=== PATIENT | female | born 2000 | race African-American/Black ===

== ENCOUNTER 2021-06-28 18:56 | Inpatient (IN) | payer OTHER ==
[~2021-06-28] VITALS: Ht 170.2 cm; Wt 119.7 kg
[2021-06-28 20:34] LABS: HEMOGLOBIN 9.4 gm/dl (12.3-15.3); RED BLOOD COUNT 4.08 M/UL (4.00-5.10); WHITE BLOOD COUNT 8.6 K/UL (4.5-11.0)
[2021-06-28 21:07] LABS: BUN/CREATININE RATIO 13 (0-10)
[2021-06-29] MEDS ORDERED: KEPPRA500 MG PO (01:36)
[2021-06-29] MEDS ORDERED: NORVASC5 MG PO (01:37)
[2021-06-29] MEDS ORDERED: PLAVIX75 MG PO (01:38)
[2021-06-29] MEDS ORDERED: ABILIFY MAINTE300 MG IM (01:40)
[2021-06-29] MEDS ORDERED: TRUVADA 200 MG1 EACH PO (01:41)
[2021-06-29] MEDS ORDERED: TIVICAY50 MG PO (01:41)
--- NOTE | 2021-06-29 20:46 | NUR ---
1940 PATIENT JERONIMO AWAN RANG OUT TO NURSES STATION, PATIENT DID NOT RESPOND WHEN ASKED IF SHE NEEDED ASSISTANCE. I WENT TO PATIENTS ROOM TOO CHECK ON PATIENT. THE BATHROOM DOOR WAS CLOSED AND LOCKED, UPON KNOCKING ON THE DOOR AND CALLING OUT TO THE PATIENT SHE STATED THAT SHE WAS GOING TO STRANGLE HERSELF. I ASKED HER TO PLEASE OPEN THE DOOR AND SHE DID NOT RESPOND. I RAN OUT TO THE NURSES STATION TO GRAB MY TRUCK KEYS AND A BUTTER KNIFE OFF A MEAL TRAY. MAYANK CAME FOR ASSISTANCE AND I IINSTRUCTED HER TO CALL SECURITY I CALLED THE LEAD DATABASE DEVELOPER. WE WERE UNABLE TO GET THE DOOR OPEN UNTIL SECURITY ARRIVED WITH KEYS. UPON THE DOOR BEING UNLOCKED THE PATIENT WAS FOUND SITTING ON THE TOLIET WITH THE CALL BALL WRAPPED AROUND HER NECK TIGHTLY 3 TIMES. I CALLED AN YARDAGE CONTROL CLERK AND NOTIFIED THE PHYSICIAN. SEANYIRICHARD WAS BRIEFLY UNRESPONSIVE BUT WAS ARROUSED AND ABLE TO WALK TO BED WITH ASSISTANCE. PATIENT STATED THAT SHE IS ANXIOUS FOR SURGERY TOMORROW AND WANTED TO GO HOME. AFTER TALKING WITHH THE PROVIDER THE PATIENT IS NOW ON SI WITH A 1:1 SITTER. PATIENT IS SCHEDULED CT OF HEAD AND NECK TO RULE OUT INJURIES FROM CORD. I WILL CONTINUE TO MONITOR PATIENT .
[2021-06-30 04:14] LABS: HEMOGLOBIN 9.7 gm/dl (12.3-15.3); RED BLOOD COUNT 4.24 M/UL (4.00-5.10)
[2021-06-30 04:40] LABS: BUN/CREATININE RATIO 12 (0-10)
--- NOTE | 2021-06-30 07:12 | NUR ---
1939 PATIENT VITALS SIGNS POST OCCURANCE 101/64, 98.0, 83 [phone] 99 PROVIDER WAS NOTIFIED AND ORDERED CT OF HEAD AND NECK
--- NOTE | 2021-06-30 09:23 | NUR ---
PATIENT ANXIOUS ABOUT SURGERY STATES SHE WANTS TO BE A DNR
--- NOTE | 2021-06-30 16:48 | NUR ---
PATIENT HAS FREQUENT EPISODES OF ANGER AND OURTRAGE VISITORS (2) WERE HERE WHEN PT WAS IN OR SENT TWO VISITORS TO 2ND FLOOR FOR UPDATES WHEN PT CAME BACK TO FLOOR NO VISITORS WERE PRESENT PT BECAME VERY UPSET AND I HAD TO ADMINISTER 1MG OF ATIVAN IVP SITTER AT BEDSIDE NO CURTAINS, CORDS, ANYTHING NEAR THE PT FOR HARM WCTM....
[2021-07-01 09:46] LABS: HEMOGLOBIN 10.5 gm/dl (12.3-15.3); RED BLOOD COUNT 4.57 M/UL (4.00-5.10)
[2021-07-01 09:47] LABS: WHITE BLOOD COUNT 13.4 K/UL (4.5-11.0)
[2021-07-01 10:12] LABS: BUN/CREATININE RATIO 17 (0-10)
[2021-07-01 22:07] LABS: HEMOGLOBIN 10.4 gm/dl (12.3-15.3); RED BLOOD COUNT 4.43 M/UL (4.00-5.10); WHITE BLOOD COUNT 12.1 K/UL (4.5-11.0)
[2021-07-01 22:35] LABS: BUN/CREATININE RATIO 20 (0-10)
--- NOTE | 2021-07-02 03:21 | NUR ---
1900 DURING ASSESSMENT OF PATIENT AND ROOM I REMOVED A MEAL TRAY WITH METAL UTENSILS (SPOON FORK AND KNIFE). HOUSE WAS NOTIFIED AND CONTACTED DIETARY.
--- NOTE | 2021-07-02 05:30 | NUR ---
PATIENT REFUSED MORNING DOSE OF IV ANTIBIOTICS STATED "IM ALLERGIC, I DONT WANT THEM" I EXPLAINED THE IMPORTANCE OF THE ANTIBIOTICE AND SHE STATED " GIVE ME A PILL THOSE DAMN THINGS TAKE TO LONG AND I CANT MOVE MY ARM WHILE IS HOOKED UP". WILL NOTIFY DAYSHIFT
[2021-07-02 08:20] LABS: BUN/CREATININE RATIO 20 (0-10)
[2021-07-02 11:38] LABS: HEMOGLOBIN 9.7 gm/dl (12.3-15.3); RED BLOOD COUNT 4.26 M/UL (4.00-5.10); WHITE BLOOD COUNT 9.5 K/UL (4.5-11.0)
--- NOTE | 2021-07-02 15:42 | NUR ---
PATIENT SITTING IN WINDOW AREA WHEN PATIENT BEGINS TO STARE WITHOUT REPSONSE, DROOLING NOTED. OUTSIDE MACHINIST SUPERVISOR NOTIFIED NURSE. VS 161/101, HR 87, RESP 18, O2 SAT 99%. STERNAL RUB APPLIED BY NURSE AND PATIENT AROUSED SLOWLY. PATIENT STOOD UP AND STAFF ATTEMPTED TO REDIRECT. PATIENT ASSISTED TO BED PER 3 STAFF MEMBERS. PATIENT C/O CHEST PAIN. NOTIFIED. ORDER RECEIVED FOR EKG, CMP, CARDIAC ENZYMES, INCREASE KEPPRA TO 750MG PO BID. PATIENT LYING IN BED, AROUSES TO VERAL STIMULI. WCTM.
[2021-07-02 16:46] LABS: BUN/CREATININE RATIO 16 (0-10)
--- NOTE | 2021-07-02 18:21 | NUR ---
AT 1645 PATIENT BECAME AGITATED AND STRIPPED ALL HER CLOTHES OFF. PATIENT LEFT THE ROOM WRAPPED IN A BLANKET AND ATTEMPTED TO LEAVE THE MED SURG FLOOR. SITTER WALKED WITH PATIENT UNTIL NURSE TOOK OVER AND [facility] WAS CALLED PATIENT WAS ATTEMPTING TO LEAVE MED SURG FLOOR. PATIENT WAS ESCORTED BACK TO MED SURG FLOOR. PATIENT REMAINED AGITATED AND STAFF ATTEMPTED TO REDIRECT BEHAVIOR WITHOUT SUCCESS. WAS NOTIFIED AND ASKED TO COME SEE PATIENT. PATIENT BECAME UPSET WITH . WAS NOTIFIED PER RESOURCE NURSE. PATIENT WAS OFFERED [employer]ATCH APPROVED CLOTHING AND REFUSED. PATIENT WAS OFFERED MULTIPLE FOOD ITEMS AND REFUSED. SECURITY AND NURSING STAFF AT BEDSIDE. PATIENT BEHAVIOR REDIRECTED AND PATIENT BECAME COOPERATIVE. ORDER RECEIVED TO MEDICALLY CLEAR PATIENT AT 1730 VIA AND . OLAP REFERRAL INITIATED. OLAP EVAL DONE VIA TELEHEALTH AT 1815. AWAITING OLAP DETERMINATION FOR DISCHARGE PLANNING. PATIENT CALM WITH SITTER AND SECURITY AT BEDSIDE. NO FURTHER INCIDENTS NOTED TO THIS TIME. WCTM.
--- NOTE | 2021-07-03 06:21 | NUR ---
PATIENT DC'D IV. DARYA, FOOD DEMONSTRATOR, ATTEMPTED TO OBTAIN NEW IV ACCESS. THE PATIENT REFUSED AT THAT TIME. I HAVE TRIED MULTIPLE TIMES THROUGHOUT MY SHIFT TO OBTAIN IV ACCESS, AND PATIENT SCREAMS FOR ME TO GET OUT OF HER ROOM.
[2021-07-03 09:27] LABS: HEMOGLOBIN 10.2 gm/dl (12.3-15.3); RED BLOOD COUNT 4.48 M/UL (4.00-5.10); WHITE BLOOD COUNT 9.9 K/UL (4.5-11.0)
[2021-07-03] MEDS ORDERED: AUGMENTIN 875-1 EACH PO (09:49)
[2021-07-03 09:52] LABS: BUN/CREATININE RATIO 18 (0-10)
== END 2021-07-03 17:01 | DRG 603 ==
LOC: ER1 18:56 → M/S 22:25 → CDU 22:25 → M/S 06-29 00:58
PROVIDERS: Physician Assistant; ADMIT Internal Medicine
PROC: 0J990ZZ Drainage of Buttock Subcutaneous Tissue and Fascia, Open Approach (ICD-10-PCS; 2021-06-30)
PROC: B24BZZZ Ultrasonography of Heart with Aorta (ICD-10-PCS; principal; 2021-07-02)
DX: L02.31 Cutaneous abscess of buttock (principal); Z68.41 Body mass index [BMI] 40.0-44.9, adult; G40.909 Epilepsy, unspecified, not intractable, without status epilepticus; I48.0 Paroxysmal atrial fibrillation; E66.01 Morbid (severe) obesity due to excess calories; F10.10 Alcohol abuse, uncomplicated; F41.9 Anxiety disorder, unspecified; F32.A Depression, unspecified; D64.9 Anemia, unspecified; I10 Essential (primary) hypertension; E11.9 Type 2 diabetes mellitus without complications; Y92.231 Patient bathroom in hospital as the place of occurrence of the external cause; Z86.73 Personal history of transient ischemic attack (TIA), and cerebral infarction without residual deficits; Z88.8 Allergy status to other drugs, medicaments and biological substances; Z82.49 Family history of ischemic heart disease and other diseases of the circulatory system; Z83.3 Family history of diabetes mellitus; T14.91XA Suicide attempt, initial encounter; X83.8XXA Intentional self-harm by other specified means, initial encounter
CPT/HCPCS: ECHO; 36415; 70450; 70490; 72192; 80053; 80202; 82550; 82553; 82962; 83605; 84484; 84703; 85025; 85027; 85610; 85652; 86140; 87040; 87070; 87205; 93005; 93306; 99285; J0696; J1100; J1953; J2001; J2060; J2250; J2405; J2704; J3010; J3370; J7070; J7120; U0002